=== PATIENT | male | born 1995 | race Caucasian/White ===

== ENCOUNTER 2017-06-26 01:00 | Emergency (ER) | payer BC ==
--- NOTE | 2017-06-26 01:12 | DR.GENAD ---
HPI - Complaint/Symptoms Chief Complaint Doctors Comments: Patient brought by EMS for evaluation because he has been drinking and his family states he usually have seizures when he drinks and they want him evaluated. EMS states that he has not had any seizures since being with them and he has been responding but has been sleeping. States he is allergic to penicillina and is not taking any medicines for seizures. No family member with the patient presently. Family members arrived and states patient has been drinking all day to celebrate his 22rd birthday. States he has had one episode of heavy drinking before with seizures. States he does not have seizures unless he drinks. States he is not on any medicines for seizures. Father denies head trauma; states patient slumped over at home after heavy drinking. States he was doing fine earlier today. - Nurses notes reviewed Nurses Notes Review: Yes - Source History Provided: EMS - Mode of Arrival Mode of Arrival: EMS - Timing Came on: Gradually - Duration Duration: Constant How lon Duration: Days - Location Location: no complaint of pain - Severity Severity: Moderate - Modifying Factors Worsens:: nothing Improves:: nothing ROS - Review of Systems Constitutional: No Symptoms Reported Eyes: No Symptoms Reported ENTM: No Symptoms Reported Respiratoy: No Symptoms Reported Cardiovascular: No Symptoms Reported. negative: See HPI, Chest Pain, Edema, Palpitations, Syncope, Cyanosis, Skin Mottling, Other Gastrointestinal/Abdominal: Nausea, Vomiting (vomited in the ambulance) Genitourinary: No Symptoms Reported Neurological: No Symptoms Reported Musculoskeletal: No Symptoms Reported Integumentary: No Symptoms Reported Hematologic/Lymphatic: No Symptoms Reported Endocrine: No Symptoms Reported Psychiatric: No Symptoms Reported PE - Vital Signs Vitals: Pulse Rate [Apical] 94 Pulse Rate 81 Respiratory Rate 20 Blood Pressure [Left Arm] 113/66 Blood Pressure 114/57 O2 Sat by Pulse Oximetry 96 - General Limitations: Physical Limitation General Appearance: Lethargic - Head Head Exam: Normal Inspection, Atraumatic, Normocephalic - Eyes Eye exam: Normal Appearance, PERRL, EOMI. negative: Scleral Icterus, Conjunctival Injection, Nystagmus, Miosis, Mydrasis, Periorbital Swelling, Periorbital Tenderness, Other - ENT ENT Exam: Normal Exam, Normal Oropharynx, Normal External Ear Exam, Mucous Membranes Moist, TM's Normal Bilaterally External Ear Exam: Normal External Inspection TM/Canal Exam: Bilateral Normal Nose Exam: Normal Nose Exam Mouth Exam: Normal Inspection, Drooling Throat Exam: Normal Inspection - Neck Neck Exam: Normal Inspection, Full ROM, Trachea Midline - Chest Chest Inspection: Normal Inspection, Symmetric Chest Wall Rise - Respiratory Respiratory Exam: Normal Lung Sounds Bilat Respiratory Exam: Bilateral Clear to Auscultation - Cardiovascular Cardiovascular Exam: Regular Rate, Normal Rhythm, Normal Heart Sounds - Abdominal Exam Abdominal Exam: Normal Inspection, Normal Bowel Sounds, Soft. negative: Distention, Tenderness, Guarding, Rebound, Rigidity, Dimnished Bowel Sounds, Hyperactive Bowel Sounds, Hypoactive Bowel Sounds, Organomegaly, Trauma, Incision, Ascites, Mass, Bruit, Pulsatile Mass, Hernia, Other Abdominal Tenderness: negative: RUQ, RLQ, LUQ, LLQ, Epigastrium, Suprapubic, Diffuse, Mild, Moderate, Severe, Other - Extremities Extremities Exam: Normal Inspection, Full ROM, Normal Capillary Refill. negative: Tenderness, Edema, Joint Swelling, Calf Tenderness, Other - Back Back Exam: Normal Inspection, Full ROM. negative: Tenderness, (R) CVA Tenderness, (L) CVA Tenderness, Muscle Spasm, Paraspinal Tenderness, Vertebral Tenderness, Rashes, (R) Sciatic Notch Tenderness, (L) Sciatic Notch Tendern, (R ) Straight Leg Raise, (L) Straight Leg Raise, Other - Neurologic Neurological Exam: CN II-XII Intact, Reflexes Normal. negative: Alert ( lethargic), Oriented X3 (not responding to verbal stimulus), Normal Gait (gait not tested) - Psychiatric Psychiatric Exam: Normal Affect, Normal Mood - Skin Skin Exam: Warm, Dry, Intact, Normal Color Course - Reevaluation 1st: Improved (Patient awake states his birthday is soon and he will be [age] something. He denies pain, headache or dizziness.) - Education/Counseling Education/Counseling: Patient, Family Educated On: Treatment, Diagnosis, Needs for Follow Up ROR - Labs Reviewed Laboratory Results Reviewed?: Yes (All labs and x-ray results reviewed and discussed with patient and family) Result Diagrams: 06/26/17 01:38 06/26/17 01:38 Laboratory: WBC 7.3 X10^3/uL (3.6-10.0) 06/26/17 01:38 RBC 5.19 X10^6/uL (4.7-6.0) 06/26/17 01:38 Hgb 15.4 g/dL (13.5-18.0) 06/26/17 01:38 Hct 44.6 % (42.0-54.0) 06/26/17 01:38 MCV 86.0 fL (80.0-100.0) 06/26/17 01:38 MCH 29.7 pg (27.0-34.0) 06/26/17 01:38 MCHC 34.6 g/dL (33.0-35.0) 06/26/17 01:38 RDW 13.7 % (11.6-16.5) 06/26/17 01:38 Plt Count 240 X10^3/uL (150.0-450.0) 06/26/17 01:38 MPV 7.6 fL (7.4-11.0) 06/26/17 01:38 Neut % (Auto) 65.7 % (42.0-75.0) 06/26/17 01:38 Lymph % (Auto) 27.1 % (21.0-51.0) 06/26/17 01:38 [place] % (Auto) 5.4 % (0.0-13.0) 06/26/17 01:38 Eos % (Auto) 1.2 % (0.9-2.9) 06/26/17 01:38 Baso % (Auto) 0.6 % (0.2-1.0) 06/26/17 01:38 Neut # (Auto) 4.8 x10^3/uL (2.2-4.8) 06/26/17 01:38 Lymph # (Auto) 2.0 X10^3/uL (1.3-2.9) 06/26/17 01:38 [place] # (Auto) 0.4 x10^3/uL (0.3-0.8) 06/26/17 01:38 Eos # (Auto) 0.1 x10^3/uL (0.0-0.2) 06/26/17 01:38 Baso # (Auto) 0.0 X10^3/uL (0.0-0.1) 06/26/17 01:38 Absolute Nucleated RBC 0.1 /100WBC 06/26/17 01:38 INR Target Range - 06/26/17 01:38 INR 0.97 (0.8-1.3) 06/26/17 01:38 APTT 26.0 SECONDS (22.9-36.5) 06/26/17 01:38 PTT Comment - 06/26/17 01:38 Sodium 140 mmol/L (136-145) 06/26/17 01:38 Corrected Sodium 141 mmol/L (136-145) 06/26/17 01:38 Potassium 3.5 mmol/L (3.5-5.1) 06/26/17 01:38 Chloride 103 mmol/L (98-107) 06/26/17 01:38 Carbon Dioxide 27.0 mmol/L (21-32) 06/26/17 01:38 BUN 8 mg/dL (7-18) 06/26/17 01:38 Creatinine 1.05 mg/dL (0.70-1.30) 06/26/17 01:38 Est GFR (MDRD) Af Amer > 60 (>60) 06/26/17 01:38 Est GFR (MDRD) Non-Af > 60 (>60) 06/26/17 01:38 Glucose 129 mg/dL (65-99) H 06/26/17 01:38 Calcium 8.4 mg/dL (8.5-10.1) L 06/26/17 01:38 Corrected Calcium TNP 06/26/17 01:38 Magnesium 2.0 mg/dL (1.7-2.9) 06/26/17 01:38 Total Bilirubin 0.30 mg/dL (0.2-1.0) 06/26/17 01:38 AST 20 Units/L (15-37) 06/26/17 01:38 ALT 36 Units/L (12-78) 06/26/17 01:38 Alkaline Phosphatase 61 Units/L (46-116) 06/26/17 01:38 Creatine Kinase 234 Units/L (39-308) 06/26/17 01:38 CK-MB (CK-2) 1.4 ng/mL (0-4.0) 06/26/17 01:38 CK/CKMB % Calc 0.6 % (<4) 06/26/17 01:38 Troponin I < 0.02 ng/mL (0-1.5) 06/26/17 01:38 Total Protein 7.7 g/dL (6.4-8.2) 06/26/17 01:38 Albumin 4.5 g/dL (3.4-5.0) 06/26/17 01:38 Globulin 3.2 g/dL (2.5-4.5) 06/26/17 01:38 Albumin/Globulin Ratio 1.4 Ratio (1.1-2.1) 06/26/17 01:38 Urine Opiates Screen Negative (NEG=<300) 06/26/17 03:19 Urine Methadone Screen Negative (NEG=<300) 06/26/17 03:19 Ur Barbiturates Screen Negative (NEG=<200) 06/26/17 03:19 Ur Phencyclidine Scrn Negative (NEG=<25) 06/26/17 03:19 Ur Amphetamines Screen Negative (NEG=<1000) 06/26/17 03:19 U Benzodiazepines Scrn Negative (NEG=<200) 06/26/17 03:19 Urine Cocaine Screen Negative (NEG=<300) 06/26/17 03:19 U Marijuana (THC) Screen Negative (NEG=<50) 06/26/17 03:19 Ethyl Alcohol mg/dL 83 mg/dL (0-19.9) H 06/26/17 07:50 - XRAY XRAY Interpreted by: Radiologist (CT head: No acute intracranial hemorrhage) XRAY Findings: CXR: No acute chest process - EKG Rate: 76 [place]: Normal Rhythm: NSR Block: None Hypertrophy: None ST: Normal, Nonsp - Diagnosis Discharge Problem: History of seizure, Hyperglycemia Alcohol intoxication Qualifiers: Complication of substance-induced condition: uncomplicated Qualified Code(s): F10.920 - Alcohol use, unspecified with intoxication, uncomplicated - Discharge Plan Disposition: HOME, SELF-CARE Condition: Stable - Follow ups/Referrals Follow ups/Referrals: FRANCISCO,None [Primary Care Provider] - 3 days TRACI ACE [STAFF PHYSICIAN] - 3 days - Instructions Instructions: Alcohol Use Disorder, Alcohol Intoxication, Hyperglycemia, Easy- to-Read, Alcohol Withdrawal, Odve-ys-Xmus
[2017-06-26] MEDS ORDERED: NS 1000 ML 1,000 ML ONE (01:19)
[2017-06-26 01:23] VITALS: BMI 26.3
[2017-06-26 01:59] LABS: BASOPHILS % (AUTO) 0.6 % (0.2-1.0); EOSINOPHILS # (AUTO) 0.1 x10^3/uL (0.0-0.2); EOSINOPHILS % (AUTO) 1.2 % (0.9-2.9); HEMATOCRIT 44.6 % (42.0-54.0); HEMOGLOBIN 15.4 g/dL (13.5-18.0); LYMPHOCYTES % (AUTO) 27.1 % (21.0-51.0); MEAN CORPUSCULAR HEMOGLOBIN 29.7 pg (27.0-34.0); MEAN CORPUSCULAR HGB CONC 34.6 g/dL (33.0-35.0); MEAN PLATELET VOLUME 7.6 fL (7.4-11.0); MONOCYTES # (AUTO) 0.4 x10^3/uL (0.3-0.8); MONOCYTES % (AUTO) 5.4 % (0.0-13.0); NEUTROPHILS # (AUTO) 4.8 x10^3/uL (2.2-4.8); NEUTROPHILS % (AUTO) 65.7 % (42.0-75.0); PLATELET COUNT 240 X10^3/uL (150.0-450.0); RED BLOOD COUNT 5.19 X10^6/uL (4.7-6.0); RED CELL DISTRIBUTION WIDTH 13.7 % (11.6-16.5); WHITE BLOOD COUNT 7.3 X10^3/uL (3.6-10.0)
[2017-06-26] MEDS ORDERED: NS 1000 ML 1,000 ML IV SCH (02:00)
[2017-06-26 02:04] LABS: BLOOD UREA NITROGEN 8 mg/dL (7-18); CALCIUM 8.4 mg/dL (8.5-10.1); CHLORIDE 103 mmol/L (98-107); COR NA(FOR HYPERGLY) 141 mmol/L (136-145); CREATININE 1.05 mg/dL (0.70-1.30); SODIUM 140 mmol/L (136-145); TROPONIN I < 0.02 ng/mL (0-1.5); eGFR BLACK RACES > 60 (>60); eGFR NON BLACK RACES > 60 (>60)
[2017-06-26 02:08] LABS: ALANINE AMINOTRANSFERASE 36 Units/L (12-78); ALBUMIN 4.5 g/dL (3.4-5.0); ALKALINE PHOSPHATASE 61 Units/L (46-116); ASPARTATE AMINO TRANSFERASE 20 Units/L (15-37); BLOOD ALCOHOL 172 mg/dL (0-19.9); CKMB % 0.6 % (<4); CREATINE KINASE 234 Units/L (39-308); CREATINE KINASE MB 1.4 ng/mL (0-4.0); TOTAL PROTEIN 7.7 g/dL (6.4-8.2)
--- NOTE | 2017-06-26 05:00 | RAD ---
Chest AP portable Indication: Chest pain Findings: There is no pneumothorax or effusion. There is no consolidation. Heart size is within reji l limits for technique Impression: No acute chest process Reported By:
--- NOTE | 2017-06-26 05:20 | CT ---
CT head without contrast Indication: Altered mental status. Seizures Technique: Axial images from the skullbase to the vertex without contrast. Coronal and sagittal refor mats provided. Comparison: None available Findings: There is no acute intracranial hemorrhage, mass or mass effect. No extra-axial fluid collec tion or abnormal area of hypoattenuation suggest infarction seen. Ventricles and sulci are normal. Re view of bone windows shows no osseous lesion. Paranasal sinuses and mastoid air cells are clear. Impression: No acute intracranial hemorrhage Reported By:
[2017-06-26] MEDS ORDERED: ROCEPHIN 1 GM IV PREMIX 1 GM/50 ML IV.SOLN. IV ONE (07:33)
[2017-06-26] MEDS ORDERED: TORADOL 30 MG VIAL IVP STA (07:33)
[2017-06-26 07:34] VITALS: BP 113/66
== END 2017-06-26 08:22 | disposition home or self-care (01) ==
LOC: ER 01:00
DX: F10.920 Alcohol use, unspecified with intoxication, uncomplicated (principal); R73.9 Hyperglycemia, unspecified; Z86.69 Personal history of other diseases of the nervous system and sense organs
CPT/HCPCS: 36415; 51702; 70450; 71045; 80053; 80307; 82550; 82553; 83735; 84484; 85025; 85610; 85730; 93005; 93010; 96365; 96374; 99283; 99284; A4222; G0434; G6040